=== PATIENT | female | born 1990 | race Caucasian/White ===

== ENCOUNTER 2018-12-06 16:13 | Inpatient (IN) | payer OTHER, MEDICAID ==
[2018-12-06] MEDS ORDERED: Promethazine INJ(RESTRICTED)* 25 MG/ML 1 ML VIAL IV ONE (18:59)
[2018-12-06] MEDS ORDERED: Lactated Ringers 1000 ML Bag* 1,000 ML IV ONE (18:59)
[2018-12-06] MEDS ORDERED: Nalbuphine* 10 MG/ML 1 ML VIAL IV ONE (18:59)
[2018-12-06] MEDS ORDERED: Buffered Lidocaine 1% SYRIN* 1 ML/SYRINGE INTRADERM ONE (18:59)
[2018-12-06] MEDS ORDERED: Dinoprostone* 10 MG VAG.SUPP VAGINAL ONE (18:59)
[2018-12-06] MEDS ORDERED: Lactated Ringers 1000 ML Bag* 1,000 ML IV SCH (19:00)
--- NOTE | 2018-12-06 19:08 | HP ---
General Information - Reason for Visit Leaking of fluid since 12/06/18 at 4:00AM, term , irregular ctx, cramping, +FM, -VB. - General Information Maternal Age: 28 Grav: 1 Para: 0 SAB: 0 IEA: 0 Estimated Due Date: 12/09/18 Maternal Blood Type and Rh: O Positive - Results this Serology/RPR Result: Non-Reactive Rubella Result: Immune HBsAg Result: Negative HIV Result: Negative GBS Culture Result: Negative Past Medical History Pertinent Past Medical History: See Records - hx anxiety, back injury Pertinent Past Surgical History: See Records - lower lumbar disc 2011 Pertinent Family History: See Records - Br CA, thyroid disorder - Antepartal Records Antepartal Records: Reviewed, Complicated by: - sicklke cell trait, low lying placenta (resolved 08/19/2018) Review of Systems Constitutional: Comfortable CV Complaint: No Respiratory: Shortness of Breath: No Gastrointestinal: No Nausea/Vomiting, Normal Bowel Movement Genitourinary: Leaking Fluid, No Dysuria, No Bleeding Musculoskeletal: No Complaint Neurological: No Headache, No Visual Changes Movement: Normal Exam Allergies/Adverse Reactions: Allergies No Known Allergies Allergy (Verified 12/06/18 16:57) T:99.0, P:76, R:18, BP:129/77, O2:98% Lab Values - Entire Visit: Laboratory Tests 12/06/18 16:40 Vag Amniotic Fld Detect Positive - Measurements Height: 5 ft 1 in Weight: 140 lb Weight in lbs: 140.099750 Body Mass Index (BMI): 26.4 Pre- Weight: 133 lb Weight Gained This : 7 lbs and 0 ozs - Exam Breast: Breast Exam Deferred CVA: No CVA Tenderness Extremities: No Edema Heart: Normal Rhythm/Heart Sounds HEENT: No Significant Findings Lungs: Clear Bilaterally Rectal: Rectal Exam Deferred Reflexes: DTR 2+ Thyroid: No Thyromegaly - Abdominal Exam Abdomen Exam: Fundal Height Consistent with Dates - Ultrasound/Biophysical Profile Ultrasound Status: Not Done Targeted Exam Findings Cervical Exam: Fingertip Effacement: 50% Station: -2 Presenting Part: Vertex Membrane Status: SROM Amniotic Fluid Evaluation: Positive ROM Plus Bleeding/Discharge: None EFM Findings - External Monitor Findings Baseline Heart Rate: 135 External Monitor Findings: Accelerations Present, No Pattern of Variable or Late Decelerations, Variability Moderate, Baseline Stable Contractions: Irregular, Mild, < 45 Seconds Contraction Frequency: 3-10 Assessment/Plan - Assessment 28 y.o. , PROM, GBS neg - Plan Plan: Cervical Ripening - Date/Time of Admission Date of Admission: 12/06/18 Time of Admission: 18:00
[2018-12-06] MEDS ORDERED: Promethazine INJ(RESTRICTED)* 25 MG/ML 1 ML VIAL IM PRN (19:58)
[2018-12-06] MEDS ORDERED: Nalbuphine* 10 MG/ML 1 ML VIAL IM PRN (19:58)
--- NOTE | 2018-12-07 11:16 | PN ---
Progress Note - Progress Note Date of Service: 12/07/18 SOAP: Subjective: [Pt reports ctx increasing in intensity. +LOF, + bloody show, -vaginal bleeding , +FM.] Objective: [113/68, P:75, T:98.2 FHT: 155 bpm, +accels, -decels, ctx q 2-4 min. mild-moderate by palpation] Assessment: [28 y.o. , FT, PROM, induction of labor] Plan: [1. Reviewed options including cervical ripening, expectant mgmt versus pitocin pt elects to continue with expectant mgmt will consider pitocin in no progress 2. Position changes, ambulation and therapeutic support 3. Reevaluate in 2 hrs or sooner PRN]
--- NOTE | 2018-12-07 16:11 | PTEDU ---
Patient Name: BLANCA QUINTERO BLANCA QUINTERO selected video: Never Ever Shake a Baby to view on 12/07/2018 at 4:10:41 PM [id number]
--- NOTE | 2018-12-07 16:20 | PTEDU ---
Patient Name: BLANCA QUINTERO BLANCA QUINTERO selected video: BBOB: Bonding Through Infant Massage to view on 12/07/2018 at 4:20:07 PM from [id number]
--- NOTE | 2018-12-07 17:10 | PN ---
Progress Note - Progress Note Date of Service: 12/07/18 SOAP: Subjective: [Pt still coping with ctx, no increase in intensity at this time but decreased frequency. Con't LOF, + FM, -VB.] Objective: [128/74, P:68, R:18, T:97.9, FHR: 135bpm, +accels, -decels, moderate variability ctx q 2-3 min] Assessment: [28 y.o. , early labor, GBS neg. ] Plan: [1) cervadil overnight and therapeutic rest 2) Reviewed R/B with pt and pt agrees with plan. 3) Reevaluate in 12 hrs or sooner PRN]
[2018-12-07] MEDS ORDERED: Nalbuphine* 10 MG/ML 1 ML VIAL IV PRN (17:52)
[2018-12-07] MEDS ORDERED: Promethazine INJ(RESTRICTED)* 25 MG/ML 1 ML VIAL IV PRN (17:52)
[2018-12-07] MEDS ORDERED: Dinoprostone* 10 MG VAG.SUPP VAGINAL ONE (18:00)
[2018-12-07 21:58] LABS: ABS Basophils 0 10^3/ul (0-0.2); ABS Eosinophils 0.1 10^3/ul (0-0.6); ABS Lymphocytes 2.2 10^3/ul (1.0-4.8); ABS Monocytes 0.7 10^3/ul (0-0.8); ABS Neutrophils 7.1 10^3/ul (1.5-7.7); ABS Nucleated RBC 0 10^3/ul; Eosinophil % 0.8 %; Hematocrit 36 % (35-47); Hemoglobin 12.5 g/dl (12.0-16.0); Lymphocyte % 21.7 %; Mean Corpuscular HGB Conc 35 g/dl (31-36); Mean Corpuscular Hemoglobin 32 pg (27-31); Mean Corpuscular Volume 90 fL (80-97); Nucleated Red Blood Cells % 0; Platelet Count 248 10^3/ul (150-450); Red Blood Count 3.96 10^6/ul (4.00-5.40); Red Cell Distribution Width 13 % (10.5-15); White Blood Count 10.1 10^3/ul (3.5-10.8)
--- NOTE | 2018-12-08 10:13 | PN ---
Progress Note - Progress Note Date of Service: 12/08/18 SOAP: Subjective: [Pt reports irregular ctx all night that were strong and woke her up and lasted about 1 min. Pt is coping well with breathing and position changes.] Objective: [116/72, P:82, R:20, T:97.8 FHT: 135bpm, + accels, - decels, moderate variability, ctx q 2-5 min cervix: 1-2/90/-1 still firm] Assessment: [28 y.o. , early labor, GBS negative, PROM 12/06/18 at 4AM. Cat I NST] Plan: [1) Con't current plan 2) Reevaluate at noon and consider pitocin augmentation if no progress or sooner PRN.]
[2018-12-08] MEDS ORDERED: OBEPIDURAL* 250 ML EPIDURAL ONE (16:33)
[2018-12-08] MEDS ORDERED: Lactated Ringers 1000 ML Bag* 1,000 ML IV ONE (17:08)
[2018-12-08] MEDS ORDERED: Phenylephrine IV* 40 MCG/ML 10 ML SYRINGE IV PUSH PRN ×2 (17:08)
[2018-12-08] MEDS ORDERED: Sodium Citrate/Citric Acid* 15 ML UDC PO PRN (17:08)
[2018-12-08] MEDS ORDERED: Famotidine TAB* 20 MG PO PRN (17:08)
[2018-12-08] MEDS ORDERED: EPHEDrine (Pressors)* 50 MG/ML VIAL IV PUSH PRN ×2 (17:08)
[2018-12-08] MEDS ORDERED: Lactated Ringers 1000 ML Bag* 1,000 ML IV SCH (18:00)
[2018-12-08] MEDS ORDERED: OBEPIDURAL* 250 ML EPIDURAL SCH (18:00)
--- NOTE | 2018-12-08 18:56 | PN ---
Progress Note - Progress Note Date of Service: 12/08/18 SOAP: Subjective: [Pt comfortable with epidural. ] Objective: [FHT: 140 bpm, + accels, - decels, moderate variability,ctx q 2-7min cervix: 290/-2] Assessment: [28 y.o. , 39w5d EGA, PROM, GBS negative, VSS, afebrile, inadequate ctx] Plan: [1) Pitocin augmentation 2) Position changes for descent]
[2018-12-08] MEDS ORDERED: Oxytocin in LR* 20 UNITS/1,000 ML BAG IVPB SCH (19:00)
[2018-12-08] MEDS ORDERED: fentaNYL* 50 MCG/ML 2 ML VIAL (100 MCG VIAL) ONE (23:29)
--- NOTE | 2018-12-09 00:13 | PN ---
Progress Note - Progress Note Date of Service: 12/09/18 SOAP: Subjective: [Pt reports pain is now well controlled after repeat combined epidural. Pt c/o shaking but contraction pain and pressure and back pain are resolved. ] Objective: [BP:110/91, P:90, FHR: 160 bpm, + accels, occasional variable and early decels, moderate variability, ctx q 2-4 min cervix: 6-7/90/0] Assessment: [28 y.o. , PROM 12/06/18 at 4AM, active labor] Plan: [1) Continue position changes for descent 2) Pt to rest and labor and down and reevaluate in 2 hrs or sooner PRN.]
--- NOTE | 2018-12-09 02:33 | PN ---
Progress Note - Progress Note Date of Service: 12/09/18 Note: Pt with increase in pain again, trial of pushing with adequate progress, baseline FHR: 160, + accels, early and variable decels with rapid return to baseline and moderate variability. Anticipate vaginal delivery.
[2018-12-09] MEDS ORDERED: Lidocaine 2% VISCOUS* 15 ML UDC ONE (02:42)
[2018-12-09] MEDS ORDERED: Dibucaine 1% 28.35 GM TUBE PR PRN (03:19)
[2018-12-09] MEDS ORDERED: Glycerin ADULT SUPP PR PRN (03:19)
[2018-12-09] MEDS ORDERED: Acetaminophen TAB* 325 MG PO PRN (03:19)
[2018-12-09] MEDS ORDERED: Witch Hazel PAD* JAR TOPICAL PRN (03:19)
[2018-12-09] MEDS ORDERED: Lidocaine 2% VISCOUS* 15 ML UDC PO ONE (03:20)
--- NOTE | 2018-12-09 03:25 | PROCNOTE ---
[facility] OB: Delivery Note - Delivery A Date of : 12/09/18 Time of : 02:59 Sex: Male Gestational Age in Weeks and Days at Delivery: 40 Weeks and 0 Days Delivery Method: Spontaneous Vaginal Labor: Induced Amniotic Fluid: Clear Estimated Blood Loss: 200 Anesthesia/Analgesia: IM/IV, ITF/Spinal for Labor, CEI for Labor, Nitrous-Labor Delivered By: Danuta Gillis - Nursery Level of Nursery: Regular/Bedside - Perineum Perineal Injury: Perineal Laceration, 1st Degree Perineal Repair: By Delivering Practioner - Events Delivery Events of Note: Pitocin During Labor, ROM > 24 Hours
[2018-12-09] MEDS ORDERED: Lactated Ringers 1000 ML Bag* 1,000 ML IV SCH (04:00)
[2018-12-09] MEDS: Ibuprofen TAB* 600 MG PO PRN ×3 (06:15→19:30)
[2018-12-09] MEDS: Docusate CAP* 100 MG PO SCH ×4 (08:26→19:42)
[2018-12-09] MEDS ORDERED: Simethicone TAB* 80 MG TAB.CHEW PO SCH (08:30)
[2018-12-10] MEDS: Ibuprofen TAB* 600 MG PO PRN ×4 (01:32→21:09)
[2018-12-10 07:35] LABS: ABS Basophils 0.1 10^3/ul (0-0.2); ABS Eosinophils 0.2 10^3/ul (0-0.6); ABS Lymphocytes 2.2 10^3/ul (1.0-4.8); ABS Monocytes 1.1 10^3/ul (0-0.8); ABS Nucleated RBC 0 10^3/ul; Hematocrit 28 % (35-47); Hemoglobin 9.4 g/dl (12.0-16.0); Lymphocyte % 13.1 %; Mean Corpuscular HGB Conc 34 g/dl (31-36); Mean Corpuscular Hemoglobin 31 pg (27-31); Mean Corpuscular Volume 91 fL (80-97); Mean Platelet Volume 9.5 fL (7.4-10.4); Nucleated Red Blood Cells % 0; Platelet Count 180 10^3/ul (150-450); Red Blood Count 3.08 10^6/ul (4.00-5.40); Red Cell Distribution Width 13 % (10.5-15); White Blood Count 16.4 10^3/ul (3.5-10.8)
[2018-12-10] MEDS: Docusate CAP* 100 MG PO SCH ×3 (08:23→21:09)
[2018-12-10] MEDS: Ferrous Gluconate TAB* 324 MG TAB PO SCH ×2 (08:23→21:09)
[2018-12-10] MEDS ORDERED: Varicella Virus Vaccine Live* 0.5 ML VIAL SUBCUT ONE (09:28)
[2018-12-11] MEDS: Ibuprofen TAB* 600 MG PO PRN ×2 (03:09→12:36)
[2018-12-11 08:41] VITALS: BP 104/64
[2018-12-11] MEDS: Ferrous Gluconate TAB* 324 MG TAB PO SCH (12:33)
[2018-12-11] MEDS: Docusate CAP* 100 MG PO SCH (12:34)
[2018-12-11] MEDS ORDERED: oxyCODONE TAB* 5 MG TAB PO ONE (13:39)
== END 2018-12-11 14:34 | disposition home or self-care (01) | DRG 807 ==
LOC: MCHOBOUT 16:13 → MCHOB 17:43
PROVIDERS: ADMIT Midwife; ATTEND Midwife
PROC: 10E0XZZ Delivery of Products of Conception, External Approach (ICD-10-PCS; principal; 2018-12-09)
PROC: 4A1HXCZ Monitoring of Products of Conception, Cardiac Rate, External Approach (ICD-10-PCS; 2018-12-09)
PROC: 0HQ9XZZ Repair Perineum Skin, External Approach (ICD-10-PCS; 2018-12-09)
DX: O42.12 Full-term premature rupture of membranes, onset of labor more than 24 hours following rupture (principal); Z37.0 Single live birth; Z3A.40 40 weeks gestation of pregnancy; O76 Abnormality in fetal heart rate and rhythm complicating labor and delivery; O70.0 First degree perineal laceration during delivery
CPT/HCPCS: 36415; 84112; 85025; 86850; 86900; 86901; A9270-GY; J2300; J2550; J3010